=== PATIENT | female | born 1960 | race Caucasian/White ===

== ENCOUNTER 2017-10-26 13:08 | Observation (INO) ==
--- NOTE | 2017-10-26 13:17 | Emergency Department Note ---
Disposition Clinical Impression: Numbness and tingling of left arm and leg CVA (cerebral vascular accident) Qualifiers: CVA mechanism: unspecified Qualified Code(s): I63.9 - Cerebral infarction, unspecified Disposition: Admitted As Inpatient Condition: Fair Referrals: Carlos Carvajal MD [Primary Care Provider] - Time of Disposition: 14:07 Neuro HPI - General Stated Complaint: neuro symptoms Time Seen by Provider: 10/26/17 13:10 Source: patient Limitations: no limitations Nursing Notes Reviewed: Yes Vital Signs Reviewed: Yes - History of Present Illness HPI Narrative: 57-year-old with acute onset of numbness of the left side of her face her left arm and left leg at 9:30 this morning. Nevers had that before. Is not on a blood thinner does not take any medications no history of hypertension no history of atrial fibrillation. Onset of Symptoms Date: 10/26/17 Onset of Symptoms Time: 09:30 Symptom Onset Unknown: No Timing confirmed by: other (Patient) Location: left face, left arm, left leg History of same: No Severity: moderate Quality: numbness Symptoms Improving: No Improves with: none Worsens with: none Context: sudden onset On Anticoagulants: No Associated symptoms: Reports: denies other symptoms Treatments Prior to Arrival: none - Related Data Home Medications: Home Medications Medication Instructions Recorded Confirmed Zoloft 10/11/17 Previous Rx's Medication Instructions Recorded Nitrofurantoin (BID) [Macrobid] 100 mg PO BID 7 Days #14 capsule 10/11/17 Phenazopyridine [Pyridium] 200 mg PO TID 2 Days #12 tablet 10/11/17 Allergies/Adverse Reactions: Allergies Allergy/AdvReac Type Severity Reaction Status Date / Time No Known Allergies Allergy Verified 10/11/17 16:11 All systems ED: reviewed and negative except as stated. Constitutional: Denies: fever, chills, weakness, weight change Eyes: Denies: eye pain, eye discharge, vision change ENT ED: Denies: ear pain, throat pain, dental pain, hearing loss, epistaxis, congestion, dysphagia Cardiovascular: Denies: chest pain, palpitations, dyspnea on exertion, edema, syncope Respiratory: Denies: cough, dyspnea, wheezes, hemoptysis, stridor Gastrointestinal: Denies: abdominal pain, nausea, vomiting, diarrhea, constipation, hematemesis, melena, hematochezia Genitourinary: Denies: dysuria, frequency, hematuria, discharge Musculoskeletal: Denies: back pain, neck pain, arthralgia, myalgia Integumentary: Denies: rash, abrasion, lesions Neurological: Reports: numbness. Denies: headache, weakness, paresthesias, confusion, abnormal gait, vertigo Psychiatric: Denies: anxiety, depression, suicidal thoughts, homicidal thoughts , auditory hallucinations, visual hallucinations Endocrine: Denies: fatigue Hematological/Lymphatic: Denies: easy bleeding, easy bruising Allergic/Immunologic: Denies: facial swelling, urticaria Past Medical History - Past Medical History Medical history: Reports: non-contributory - Social History Smoking Status: Current every day smoker Smokeless Tobacco Status: No Alcohol use: Reports: none Physical Exam - General Limitations: no limitations General appearance: alert, in no apparent distress - Head Head exam: atraumatic, normocephalic, normal inspection - Eye Eye exam: Present: normal appearance, PERRL, EOMI - ENT ENT exam: normal exam, normal oropharynx, mucous membranes moist - Neck Neck exam: Present: normal inspection, full ROM, trachea midline - Chest Chest inspection: Present: normal inspection, symmetric chest wall rise - Respiratory Respiratory exam: Present: normal lung sounds bilaterally - Cardiovascular Cardiovascular exam: Present: regular rate, normal rhythm, normal heart sounds - Abdominal Exam Abdominal exam: Present: soft, Non-Tender. Absent: tenderness, distention, guarding, rebound, rigidity - Extremities Exam Extremities exam: Present: normal inspection, full ROM. Absent: tenderness, pedal edema - Expanded Lower Extremity Exam Neurovascular/Tendon exam: Absent: motor deficit, sensory deficit, tendon deficit - Back Exam Back exam: Present: normal inspection, full ROM. Absent: tenderness - Neurological Exam Neurological exam: Present: alert, oriented X3 - Psychiatric Psychiatric exam: Present: normal affect, normal mood - Skin Skin exam: Present: warm, dry, intact, normal color Course - Reevaluation(s) Reevaluation #1: 57-year-old who came in with acute onset of left-sided numbness of the face leg and arm. Time: 15:06 - Consultations Consultation #1: Discussed with , [facility] neurology stroke alert, patient is not a TPA candidate. Recommends admission here for evaluation of possible cardiac etiology of neck pain and etiology of the numbness. Recommends MRI, MRA of the head and neck. Time: 14:05 Consultation #2: Discussed with Dr. Macias, admit. Time: 15:06 Vital Signs Temperature 98.9 F 10/26/17 13:19 Pulse Rate 86 10/26/17 13:19 Respiratory Rate 18 10/26/17 13:19 Blood Pressure 152/92 10/26/17 13:19 O2 Sat by Pulse Oximetry 96 10/26/17 13:19 Temperature 98.9 F 10/26/17 13:19 Pulse Rate 74 10/26/17 14:30 Respiratory Rate 18 10/26/17 14:30 Blood Pressure 115/77 10/26/17 14:30 O2 Sat by Pulse Oximetry 93 10/26/17 13:48 Oxygen Delivery Oxygen Delivery Room Air Neuro Symptoms/Deficit - Lab Data Lab results reviewed: Yes I reviewed the patient's lab results. Result diagrams: 10/26/17 13:20 10/26/17 13:20 Lab Results 10/26/17 10/26/17 10/26/17 Range/Units 13:20 13:20 13:20 WBC 9.8 (4.3-11.1) K/mcL RBC 3.58 L (3.82-4.97) M/mcL Hgb 12.5 (11.5-15.4) g/dL Hct 34.7 L (35.3-44.9) % MCV 96.9 (83.0-100.0) fL MCH 34.9 H (28.0-33.3) pg MCHC 36.0 H (31.6-35.5) g/dL RDW 13.2 (11.5-14.5) % Plt Count 277 (140-400) K/mcL MPV 8.7 L (9.4-12.4) fL Immature Gran % 0.4 (0-4) % Seg Neutrophils % 51.3 % Lymphocytes % 38.1 % Monocytes % 7.0 % Eosinophils % 2.4 % Basophils % 0.8 % Neutrophils # 5.0 (1.6-8.9) K/mcL Lymphocytes # 3.7 (0.6-4.6) K/mcL Monocytes # 0.7 (0.0-1.3) K/mcL Eosinophils # 0.2 (0.0-0.6) K/mcL Basophils # 0.1 (0.0-0.2) K/mcL PT 10.6 (9.4-12.1) Seconds INR 1.0 APTT 26.4 (26.0-36.0) Seconds Sodium 136 (136-145) mEq/L Potassium 3.7 (3.5-5.1) mEq/L Chloride 104 (98-107) mEq/L Carbon Dioxide 23 (23-29) mEq/L BUN 14 (6-20) mg/dL Creatinine 0.79 (0.60-1.20) mg/dL Est GFR ( Amer) > 60 (> 60) Est GFR (Non-Af Amer) > 60 (> 60) BUN/Creatinine Ratio 18 (6-26) Glucose 97 (70-105) mg/dL Calculated Osmolality 282 (280-300) Calcium 9.2 (8.6-10.3) mg/dL Troponin I < 0.03 (< 0.04) ng/mL - Radiology Data Radiology results reviewed: Yes I reviewed the patient's radiology results. Chest X-Ray 10/26/17 13:14 IMPRESSION: No acute process. D/ / Kishore Echeverria MD / Kishore Echeverria MD Interpreting Provider: Kishore Echeverria MD Head CT 10/26/17 13:14 IMPRESSION: No acute intracranial abnormality. Findings were discussed with Juve Mace at 1:33 pm on 10/26/2017. D/ / Lenny Ortega MD / Lenny Ortega MD Interpreting Provider: Lenny Ortega MD - EKG Data EKG attestation: Yes I reviewed and interpreted this EKG. EKG shows normal: sinus rhythm Rate: normal Rhythm: NSR [place]/QRS: normal Interpretation: no acute changes NIH Stroke Scale - Level of Consciousness LOC: Alert - LOC Questions LOC Questions: Answers one correctly - LOC Commands LOC Commands: Performs both correctly - Best Gaze Best Gaze: Normal - Visual Visual: No visual loss - Facial Palsy Facial Palsy: Normal - Motor Arms Motor Arm-Left: No drift for 10 seconds Motor Arm-Right: No drift for 10 seconds - Motor Legs Motor Leg-Left: No drift for 5 seconds Motor Leg-Right: No drift for 5 seconds - Limb Ataxia Limb Ataxia: Normal, No Ataxia - Sensory Sensory: Mild to moderate loss, "not as sharp" - Best Language Best Language: No aphasia - Dysarthria Dysarthria: Normal - Extinction and Inattention Extinction and Inattention: Normal - NIHSS Total Score NIHSS Total Score: 2 TPA Checklist - LKW: 3-4.5 hrs Add. Warnings/Precautions Patient/family understanding: The patient/family members have been counseled and understood the risk, benefit , and alternatives of treatment.
[2017-10-26 13:28] LABS: Basophils # 0.1 K/mcL (0.0-0.2); Basophils % 0.8 %; Eosinophils # 0.2 K/mcL (0.0-0.6); Eosinophils % 2.4 %; Hematocrit 34.7 % (35.3-44.9); Hemoglobin 12.5 g/dL (11.5-15.4); Immature Granulocytes % 0.4 % (0-4); Lymphocytes # 3.7 K/mcL (0.6-4.6); Lymphocytes % 38.1 %; Mean Corpuscular Hemoglobin 34.9 pg (28.0-33.3); Mean Corpuscular Volume 96.9 fL (83.0-100.0); Mean Platelet Volume 8.7 fL (9.4-12.4); Monocytes # 0.7 K/mcL (0.0-1.3); Platelet Count 277 K/mcL (140-400); Red Blood Count 3.58 M/mcL (3.82-4.97); Red Cell Distribution Width 13.2 % (11.5-14.5); Segmented Neutrophils % 51.3 %
[2017-10-26 13:33] LABS: Prothrombin Time 10.6 Seconds (9.4-12.1)
[2017-10-26 13:37] LABS: Activated Partial Thrombo Time 26.4 Seconds (26.0-36.0)
[2017-10-26 13:44] LABS: Troponin I < 0.03 ng/mL (< 0.04)
[2017-10-26 13:53] LABS: BUN/Creatinine Ratio 18 (6-26); Blood Urea Nitrogen 14 mg/dL (6-20); Calcium 9.2 mg/dL (8.6-10.3); Carbon Dioxide 23 mEq/L (23-29); Chloride 104 mEq/L (98-107); Glucose 97 mg/dL (70-105); Osmolality,Calculated 282 (280-300); Potassium 3.7 mEq/L (3.5-5.1); Sodium 136 mEq/L (136-145); eGFR For African Americans > 60 (> 60); eGFR For Non-African Americans > 60 (> 60)
[2017-10-26] MEDS ORDERED: Naloxone 0.4 MG/ML INJ IVP PRN (15:18)
[2017-10-26] MEDS ORDERED: Acetaminophen 325 MG TABLET PO PRN (15:18)
--- NOTE | 2017-10-26 15:41 | Internal Med History&Physical ---
Date of Encounter: 10/26/17 Time of Encounter: 14:30 Internal Medicine - H&P: HPI Chief complaint: CVA sx (LLE/LUE weakness) Admitted From: Emergency Dept Plans for Post Hospital Care: Home History of present illness: Ms. Solis is a 57 year old female w/no medical hx who presents from the ED w/ CC of LUE and LLE weakness, numbness, and tingling that began this morning. Associated sx: right and left neck discomfort, left cheek numbness, pain in forehead, and tachycardia. Pt. reports sx as numbness and tingling w/pins and needles sensations. Denies CVA/TIA hx. 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 Denies recent illness, fever, chills, nausea, vomiting, headache, abdominal pain, changes in vision, CP, SOB, diarrhea, constipation, dizziness, lightheadedness, pre-syncope, or syncope. Past Med Surg Social Fam HX - Past Medical History Source: patient, old records reviewed, obtained from family Medical history: no medical history Psychiatric history: depression - Social History Smoking Status: Current every day smoker Smokeless Tobacco Status: No Alcohol use: none Current living situation: Home, With Family Activity Level: Independent ambulation Recent Out of Country Travel Within the Last 8 Weeks: No Exposure or Possible Exposure to Illness During Travel: No - Family History Father Race: Family Member Ethnicity: Non- Living Status: Age at : 62 Cause of : PNA Hx Family Respiratory Disorders: Yes (TB) Hx Family GI Disorders: Yes (Ulcers) Mother Race: Family Member Ethnicity: Non- Living Status: Age at : 76 Cause of : CAD Hx Family Cardiac Disorders: Yes (CAD, HTN) Brother History Unknown: Yes Race: Family Member Ethnicity: Non- Living Status: Still Living Sister Race: Family Member Ethnicity: Non- Living Status: Still Living Hx Family Genitourinary Disorders: Yes (Kidney stones) Hx Family Psychosocial Disorders: Yes (Depression) Internal Medicine - H&P: Meds Loratadine [Allergy Relief] 10 mg PO DAILY 10/26/17 [History] Multivit-Min/FA/Lycopen/Lutein [A Thru Z Select Multivit Tab] 1 tab PO DAILY [History] Sertraline [Zoloft] 100 mg PO DAILY 10/26/17 [History] 3 Allergy/AdvReac Type Severity Reaction Status Date / Time No Known Allergies Allergy Verified 10/11/17 16:11 All Systems PM: A 10-system review of systems was performed and is negative for pertinent findings except as documented above in the HPI. - Constitutional Constitutional: as per HPI, weakness (LUE/LLE ), no chills, no fever(s), no night sweats - EENT Eyes: no change in vision, no discharge, no pain, no photophobia Ears: no ear discharge, no ear pain, no tinnitus Nose, mouth and throat: no dysphagia, no nasal discharge, no neck pain, no sore throat - Breasts Breasts: as per HPI - Cardiovascular Cardiovascular ROS IM: no chest pain, no diaphoresis, no dyspnea, no lightheadedness, no palpitations, no syncope - Respiratory Respiratory: no cough, no dyspnea, no wheezing, no excessive phlegm production - Gastrointestinal Gastrointestinal: no abdominal pain, no diarrhea, no hematemesis, no hematochezia, no melena, no nausea, no vomiting - Genitourinary Genitourinary: no change in urinary stream, no dysuria, no flank pain, no hematuria Menstruation: as per HPI - Musculoskeletal Musculoskeletal ROS IM: no numbness, no tingling - Integumentary Integumentary IM: no rash, no unusual bruising - Neurological Neurological ROS: as per HPI, numbness (LUE/LLE/LT cheek), tingling (LLE/LLE/LT cheek), weakness, no confusion, no convulsions, no focal weakness, no tremor(s) - Psychiatric Psychiatric: as per HPI, depression - Endocrine Endocrine IM: as per HPI - Hematologic/Lymphatic Hematologic/Lymphatic: no easy bruising - Allergic/Immunologic Allergic/Immunologic: as per HPI - Constitutional Vitals: Temp Pulse Resp BP Pulse Ox 98.9 F 71 18 143/95 98 10/26/17 13:19 10/26/17 15:05 10/26/17 15:05 10/26/17 15:05 10/26/17 15:05 General appearance: Present: cooperative, A&O X 3, pleasant, no acute distress, answers questions appropriately - Head Head exam: Present: atraumatic, normocephalic - Eye Eye exam: Present: PERRL, conjuntiva pink, sclera anicteric Pupils: Present: PERRL - ENT ENT exam: Present: normal exam - Neck Neck exam general surgery: Present: normal inspection, supple, trachea midline. Absent: lymphadenopathy - Respiratory Respiratory exam: Present: CTAB. Absent: accessory muscle use, rales, rhonchi, wheezes - Cardiovascular Cardiovascular exam: Present: RRR, +S1, +S2. Absent: diastolic murmur, gallop, rubs, systolic murmur - GI/Abdominal GI/Abdominal exam: Present: normal bowel sounds, soft, no peritoneal signs. Absent: distended, tenderness - Rectal Rectal exam: Present: deferred - Additional comments: exam deferred. - Extremities Exam Extremities exam: Present: warm, radial pulses palpable and symmetrical. Absent : calf tenderness, cyanotic, pedal edema Additional comments: Mild (4/5) weakness in LLE and LUE on exam. No pronator drift, facial droop, slurred speech. Denies difficulty swallowing. - Back Exam Back exam: Present: normal inspection - Neurological Exam Neurological exam: Present: alert, CN II-XII intact, oriented X3, no focal deficits. Absent: pronater drift, facial droop, speech deficit - Psychiatric Psychiatric exam: Present: normal affect, normal mood - Skin Skin exam: Present: dry, intact Internal Med - H&P Results - Labs CBC & Chem 7: 10/26/17 13:20 10/26/17 13:20 - Diagnostic Studies Chest x-ray Additional comments: Impressions Chest X-Ray 10/26/17 13:14 IMPRESSION: No acute process. D/ / Kishore Echeverria MD / Kishore Echeverria MD Interpreting Provider: Kishore Echeverria MD CT scan - head Additional comments: Impressions Head CT 10/26/17 13:14 IMPRESSION: No acute intracranial abnormality. Findings were discussed with Juve Mace at 1:33 pm on 10/26/2017. D/ / Lenny Ortega MD / Lenny Ortega MD Interpreting Provider: Lenny Ortega MD - Assessment and plan (1) Numbness and tingling of left arm and leg Current Visit: Yes Status: Acute Assessment and plan: Acute numbness and tingling of the LUE and LLE that began today. Reports numbness, tingling, and pins/needles sensation in LUE, LLE, and Lt. cheek. Stroke alert called and discussed w/[facility] w/recommendation that pt. was not candidate for TPA. On exam, mild weakness (4/5) present in LLE/LUE but no pronator drift, facial droop, or slurred speech present. Denies hx of CVA or TIA. No familial hx. No recent cardiac work-up. Denies CP, SOB but reports tachycardia, pains in forehead, and bilateral neck discomfort. NIHSS scale ordered w/neuro checks Q2HR. Continuous cardiac telemetry. NPO until dysphagia screen passed. Bilateral carotid Dopplers ordered. Echocardiogram ordered. CT of the head unremarkable. MRI of the head/brain ordered to rule out ischemia /infarct. Pt. reports UTI two weeks ago, so UA w/reflex micro and culture ordered. Neuro consult ordered and discussed w// Radha and I appreciate the consult and recommendations. Pt. discussed w/Dr. Macias who agrees w/plan of care. Pt. is moderate risk for further morbidity based on new onset of CVA-type sx affecting her left side, no recent cardiac work-up or hx, and risk factor of current tobacco abuse. Observation. (2) Tobacco abuse Current Visit: Yes Status: Chronic Assessment and plan: Hx of chronic tobacco abuse. Reports smoking 1 PPD. Will order nicotine patch if needed. (3) Depression Current Visit: Yes Status: Chronic Assessment and plan: Hx of chronic depression. Continue pts. Zoloft. Qualifiers: Depression Type: unspecified Qualified Code(s): F32.9 - Major depressive disorder, single episode, unspecified (4) DVT prophylaxis Current Visit: Yes Status: Acute Assessment and plan: Heparin 5,000 units SQ Q8HR for DVT prophylaxis. Monitor pt. for signs of bleeding. - Time Spent With Patient Total time spent is greater than 50% in coordination of care (as documented) at patient's floor/unit and/or counseling patient: Greater than 35 minutes
[2017-10-26] MEDS: *HR* Heparin 5,000 UNIT/ML VIAL SQ SCH (22:10)
[2017-10-27 02:05] LABS: Alanine Aminotransferase 16 Units/L (7-52); Albumin/Globulin Ratio 1.5 (1.1-2.2); Alkaline Phosphatase 101 Units/L (34-104); Aspartate Amino Transferase 21 Units/L (13-39); BUN/Creatinine Ratio 21 (6-26); Bilirubin,Total 0.3 mg/dL (0.3-1.0); Blood Urea Nitrogen 14 mg/dL (6-20); Calcium 9.1 mg/dL (8.6-10.3); Carbon Dioxide 28 mEq/L (23-29); Chloride 106 mEq/L (98-107); Chol/HDL Ratio 3.8 (0-4.9); Cholesterol 180 mg/dL (< 200); Globulin 2.7 g/dL (2.4-3.5); Glucose 98 mg/dL (70-105); HDL Cholesterol 47 mg/dL (40-59); LDL Cholesterol,Calculated 100 mg/dL (0-99); Magnesium 2.1 mg/dL (1.6-2.6); Osmolality,Calculated 288 (280-300); Potassium 3.8 mEq/L (3.5-5.1); Sodium 139 mEq/L (136-145); Total Protein 6.7 g/dL (6.4-8.9); Triglycerides 165 mg/dL (< 150); eGFR For African Americans > 60 (> 60); eGFR For Non-African Americans > 60 (> 60)
[2017-10-27 02:20] LABS: Activated Partial Thrombo Time 26.3 Seconds (26.0-36.0); Prothrombin Time 10.9 Seconds (9.4-12.1)
[2017-10-27 02:31] LABS: Basophils # 0.1 K/mcL (0.0-0.2); Basophils % 0.8 %; Eosinophils # 0.3 K/mcL (0.0-0.6); Eosinophils % 3.8 %; Hematocrit 34.4 % (35.3-44.9); Hemoglobin 11.8 g/dL (11.5-15.4); Immature Granulocytes % 0.4 % (0-4); Lymphocytes # 3.2 K/mcL (0.6-4.6); Lymphocytes % 42.9 %; Mean Corpuscular HGB Conc 34.3 g/dL (31.6-35.5); Mean Corpuscular Hemoglobin 33.3 pg (28.0-33.3); Mean Corpuscular Volume 97.2 fL (83.0-100.0); Monocytes # 0.6 K/mcL (0.0-1.3); Neutrophils # 3.3 K/mcL (1.6-8.9); Platelet Count 262 K/mcL (140-400); Red Blood Count 3.54 M/mcL (3.82-4.97); Red Cell Distribution Width 13.2 % (11.5-14.5); Segmented Neutrophils % 44.1 %
[2017-10-27] MEDS: *HR* Heparin 5,000 UNIT/ML VIAL SQ SCH ×2 (05:39→15:39)
[2017-10-27 06:46] LABS: Estimated Average Glucose 108 mg/dl; Hemoglobin A1C 5.4 %
[2017-10-27] MEDS ORDERED: Loratadine 10 MG TABLET PO SCH (09:00)
[2017-10-27] MEDS ORDERED: Multivit/Ca/Min/Fe/FA 1 TAB TABLET PO SCH (09:00)
--- NOTE | 2017-10-27 09:02 | Neurology - Consult Note ---
Date of Encounter: 10/27/17 Time of Encounter: 08:58 Assessment and Plan (1) Numbness and tingling of left arm and leg Current Visit: Yes Status: Acute Patient has developed acute onset of left hemiparesthesia involving face, arm and leg on the left side, off and on but improving, without no other neurological deficit, negative MRI of brain for acute infarct but represent focal ischemia causing sensory deficits. Pending echocardiography. Would recommend aspirin 81mg daily for secondary CVA/TIA prevention. if echocardiography returns unremarkable patient can be discharged home from neurology perspective. Continue statin therapy. History of Present Illness Chief complaint: left sided paresthesia HPI: Ms. Solis is a 57 year old female with PMH significant for depression who developed acute onset of left sided paresthesia. Symptoms occurred at work yesterday. She describes a feeling of pins and needles involving her right arm leg and face, without speech difficulty or weakness. The symptoms come and go but still persisted when she arrived ER. Thought not to be a candidate for tPA due to no significant deficits but subjective numbness and tingling sensation. At the time of this interview, she still has some residual paresthesia involving the left side. sensory examination is intact. CT of head showed no intracranial abnormality. MRI of brain completed and showed no acute intracranial abnormality. carotid artery duplex study is unremarkable. Past Med Surg Social Fam HX - Past Medical History Medical history: no medical history Psychiatric history: depression - Social History Smoking Status: Current every day smoker Smokeless Tobacco Status: No Alcohol use: none Drug use: none - Family History Father Race: Family Member Ethnicity: Non- Living Status: Age at : 62 Cause of : PNA Hx Family Cardiac Disorders: No Hx Family Respiratory Disorders: Yes (TB) Hx Family GI Disorders: Yes (ulcer) Hx Family Genitourinary Disorders: No Hx Family Endocrine Disorder: No Hx Family Musculoskeletal Disorders: No Hx Family Neuromuscular Disorders: No Hx Family Neurologic Disorders: No Hx Family HEENT Disorders: No Hx Family Autoimmune Disorders: No Hx Family Reproductive Disorders: No Hx Family Psychosocial Disorders: No Mother Race: Family Member Ethnicity: Non- Living Status: Age at : 76 Cause of : CAD Hx Family Cardiac Disorders: Yes (stent) Hx Family Respiratory Disorders: Yes (COPD) Hx Family Cancer: No Hx Family GI Disorders: No Hx Family Genitourinary Disorders: No Hx Family Endocrine Disorder: No Hx Family Musculoskeletal Disorders: No Hx Family Neuromuscular Disorders: No Hx Family Neurologic Disorders: No Hx Family HEENT Disorders: No Hx Family Autoimmune Disorders: No Hx Family Reproductive Disorders: No Hx Family Psychosocial Disorders: No Brother History Unknown: Yes Race: Family Member Ethnicity: Non- Living Status: Still Living Sister Race: Family Member Ethnicity: Non- Living Status: Still Living Hx Family Genitourinary Disorders: Yes (Kidney stones) Hx Family Psychosocial Disorders: Yes (Depression) Medications and Allergies Loratadine [Allergy Relief] 10 mg PO DAILY 10/26/17 [History] Multivit-Min/FA/Lycopen/Lutein [A Thru Z Select Multivit Tab] 1 tab PO DAILY [History] Sertraline [Zoloft] 100 mg PO DAILY 10/26/17 [History] 3 Allergy/AdvReac Type Severity Reaction Status Date / Time No Known Allergies Allergy Verified 10/11/17 16:11 All Systems: The remainder of the systems were reviewed and are negative Physical Examination - Vital Signs Vital Signs: Initial Vital Signs Temp Pulse Resp BP Pulse Ox 98.9 F 86 18 152/92 96 10/26/17 13:19 10/26/17 13:19 10/26/17 13:19 10/26/17 13:19 10/26/17 13:19 - Constitutional General appearance: comfortable - Neurologic Detailed motor examination: full strength in all major muscle groups Motor examination - right side: 5/5: deltoids, biceps, triceps, wrist flexion, wrist extension, manufacturing director, hip flexors, tibialis Anterior, quadriceps, toe extension (EHL), plantarflexion Motor examination - left side: 5/5: deltoids, biceps, triceps, wrist flexion, wrist extension, hip flexors, manufacturing director, quadriceps, tibialis Anterior, toe extension (EHL), plantarflexion Detailed sensory examination: intact Reflex and gait examination: intact Reflexes: Biceps: 2+, Triceps: 2+, Brachioradialis: 2+, Patella: 2+, Achilles: 2 + Mental Status Examination: awake, alert, oriented to person, oriented to place, oriented to time, follows commands appropriately, answers questions appropriately, no agnosia, no aphasia, no aproxia Cranial nerve examination: PERRL, EOMI, visual villanueva intact, corneal reflexes brisk symmetrically, sensory to face intact, mastication intact, no facial asymmetry is present, no dysarthria, hearing is intact symmetrically, soft palate elevates bilaterally upon phonation, gag reflex intact, flexes SCM and trapezius muscles symmetrically with full power, tongue protrudes midline, no atrophy or facial fasiculations present Cerebellar examination: no dysmetria, performs finger to nose and heel to sargent symmetrically without ataxia, no gait ataxia, no truncal ataxia, no difficulty with rapid alternating movements Results - Laboratory Findings CBC and BMP: 10/27/17 01:11 10/27/17 01:11 Abnormal lab findings: Abnormal lab results RBC 3.54 M/mcL (3.82-4.97) L 10/27/17 01:11 Hct 34.4 % (35.3-44.9) L 10/27/17 01:11 MPV 9.0 fL (9.4-12.4) L 10/27/17 01:11 Triglycerides 165 mg/dL (< 150) H 10/27/17 01:11 LDL Cholesterol, Calc 100 mg/dL (0-99) H 10/27/17 01:11 VLDL Cholesterol, Calc 33 mg/dL (< 31) H 10/27/17 01:11 - Diagnostic Findings Additional findings: CT OF THE HEAD WITHOUT CONTRAST - STROKE ALERT 10/26/2017 1:28 pm TECHNIQUE: CT of the head was performed without the administration of intravenous contrast. Dose modulation, iterative reconstruction, and/or weight based adjustment of the mA/kV was utilized to reduce the radiation dose to as low as reasonably achievable. COMPARISON: None. HISTORY: ORDERING SYSTEM PROVIDED HISTORY: stroke alert Acute left-sided weakness, numbness starting this morning. Initial encounter. FINDINGS: BRAIN/VENTRICLES: There is no acute intracranial hemorrhage, mass effect or midline shift. No abnormal extra-axial fluid collection. The ortega-white differentiation is maintained without evidence of an acute infarct. There is no evidence of hydrocephalus. ORBITS: The visualized portion of the orbits demonstrate no acute abnormality. SINUSES: The visualized paranasal sinuses and mastoid air cells demonstrate no acute abnormality. SOFT TISSUES/SKULL: No acute abnormality of the visualized skull or soft tissues. CT/CT stroke alert head wo con IMPRESSION: No acute intracranial abnormality. Findings were discussed with Juve Mace at 1:33 pm on 10/26/2017. Impressions: The bilateral carotid arteries have minimal plaque throughout. Findings Carotid Duplex: Right: There is nonstenotic plaque in the right bifurcation. There is smooth heterogeneous plaque. Left: There is nonstenotic plaque in the left bifurcation. There is smooth heterogeneous plaque. Prior Study: No prior study available for comparison. Carotid Results MRI OF THE BRAIN WITHOUT CONTRAST 10/26/2017 4:23 pm TECHNIQUE: Multiplanar multisequence MRI of the brain was performed without the administration of intravenous contrast. COMPARISON: CT head earlier today. HISTORY: ORDERING SYSTEM PROVIDED HISTORY: R/O ischemia/infarct from CVA sx Initial encounter. Acute illness. 4 hours of headaches with memory loss and left-sided numbness in face, arm, and leg. FINDINGS: INTRACRANIAL STRUCTURES/VENTRICLES: Parenchymal volume is commensurate with age. There is mild patchy peripheral cerebral white matter T2/FLAIR hyperintensity, which is nonspecific but generally ascribed to sequela of chronic microvascular ischemia. There is no evidence of acute infarct or intracranial mass. No mass effect or midline shift. No evidence of an acute intracranial hemorrhage. The ventricles and sulci are normal in size and configuration. The sellar/suprasellar regions appear unremarkable. The normal signal voids within the major intracranial vessels appear maintained. ORBITS: The visualized portion of the orbits demonstrate no acute abnormality. SINUSES: The visualized paranasal sinuses and mastoid air cells are well aerated. BONES/SOFT TISSUES: The bone marrow signal intensity appears normal. The soft tissues demonstrate no acute abnormality. MR/MR head/brain wo con IMPRESSION: 1. No acute intracranial abnormality. 2. Mild chronic white matter microvascular ischemic changes. Consult Discharge Plan - Plan Referrals: Carlos Carvajal MD [Primary Care Provider] -
[2017-10-27 14:42] LABS: Bilirubin,Urine Negative (Negative); Blood,Urine Trace (Negative); Clarity,Urine Clear (Clear); Color,Urine Yellow (Yellow); Glucose,Urine (UA) Normal (Normal); Ketones,Urine Negative (Negative); Leukocyte Esterase,Urine Small (Negative); Nitrite,Urine Negative (Negative); PH,Urine 6.5 pH Units (5.0-8.0); Protein,Urine Negative (Neg-Trace); Specific Gravity,Urine 1.015 (1.010-1.025); Urobilinogen,Urine Normal (Normal)
[2017-10-27 14:47] LABS: Bacteria,Urine None Seen per hpf (None-Few); Hyaline Casts,Urine None Seen per lpf (None-Few); RBC,Urine 0-3 per hpf (0-3); Squamous Epithelial Cell,Urine Few per lpf (None-Few)
[2017-10-27 15:28] VITALS: BP 109/71
--- NOTE | 2017-10-27 15:37 | Discharge Summary ---
- NOTES TO OUTPATIENT PROVIDER Notes to Outpatient Provider: Continue with ASA statin per neurology recommendations. echo: LVEF 60%. Normal left ventricular diastolic function. Normal right ventricular structure and function. No significant valvular dysfunction. No pulmonary hypertension. PFO present with saline contrast injection. Orders not resulted at time of discharge: Pending orders 10/27/17 14:10 Culture,Urine [RM] Stat Date of Encounter: 10/27/17 Time of Encounter: 15:33 - Discharge Diagnosis (1) Numbness and tingling of left arm and leg Priority: Primary Status: Acute (2) Depression Priority: Secondary Status: Chronic Qualifiers: Depression Type: unspecified Qualified Code(s): F32.9 - Major depressive disorder, single episode, unspecified (3) Tobacco abuse Priority: Secondary Status: Chronic Hospital course: Ms. Solis is a 57 year old female H tobacco use depression. Presented to [facility] ED after developing acute onset of left sided parasthesia. NO speech deficits or weakness. Symptoms came and went and resoleved after several hours. In the the ED thought not a candidate for TPA due to no signifcant deficits. CT of head showed no intracranial abnormality MRI of brain completed and showed no acute intracranial abnormality. carotid artery duplex study is unremarkable. Echo did show PFO. Patient was seen by neurology who recommends cont ASA statin and risk reduction. I did discuss smoking cessation and patient requested nicotine patch. Advised about low fat low chol diet. Presently has no parasthesia sx and she is neuroligically intact. I advised patient to follow up with PCP and to take medication as prescribed She verbalizes understanding She is hemodynamically stable Discharge discussed with: patient - Time Spent with Patient Total time spent providing and/or coordinating discharge services: - Discharge Medications Prescriptions: Aspirin 81 mg PO DAILY #30 tab.chew Atorvastatin [Lipitor] 10 mg PO HS #30 tablet Nicotine Patch [Nicoderm] 14 mg TD DAILY #14 patch.td24 Home Medications: Loratadine [Allergy Relief] 10 mg PO DAILY 10/26/17 [History] Multivit-Min/FA/Lycopen/Lutein [A Thru Z Select Multivit Tab] 1 tab PO DAILY [History] Sertraline [Zoloft] 100 mg PO DAILY 10/26/17 [History] Aspirin 81 mg PO DAILY #30 tab.chew 10/27/17 [Rx] Atorvastatin [Lipitor] 10 mg PO HS #30 tablet 10/27/17 [Rx] Nicotine Patch [Nicoderm] 14 mg TD DAILY #14 patch.td24 10/27/17 [Rx] Allergies/Adverse Reactions: 3 Allergy/AdvReac Type Severity Reaction Status Date / Time No Known Allergies Allergy Verified 10/11/17 16:11 Date of admission: 10/26/17 15:20 Primary care physician: Carlos Carvajal Consults: 10/26/17 16:08 Consult to Neurology [CONS] Routine Consulting Provider: Neurology [facility] Reason for Consult: Patient has new onset of LUE and LLE weakness this morning w/numbness, tingling, and pins/needles sensations. Also in left cheek. No CVA/ TIA hx or familial hx. Risk factor of current tobacco abuse. Call Completed: Yes Discharging clinician: Berta Morocho Anticipated date of discharge: 10/27/17 - Constitutional Vitals: Temp Pulse Resp BP Pulse Ox 98.3 F 71 14 109/71 99 10/27/17 15:27 10/27/17 15:27 10/27/17 15:27 10/27/17 15:27 10/27/17 15:27 General appearance: Present: cooperative, A&O X 3, pleasant, no acute distress, answers questions appropriately - Head Head exam: Present: atraumatic, normocephalic - Eye Eye exam: Present: PERRL, conjuntiva pink, sclera anicteric Pupils: Present: PERRL - Neck Neck exam general surgery: Present: supple, trachea midline. Absent: lymphadenopathy - Respiratory Respiratory exam: Present: CTAB. Absent: accessory muscle use, rales, rhonchi, wheezes - Cardiovascular Cardiovascular exam: Present: RRR, +S1, +S2. Absent: diastolic murmur, gallop, rubs, systolic murmur - GI/Abdominal GI/Abdominal exam: Present: normal bowel sounds, soft, no peritoneal signs. Absent: distended, tenderness - Extremities Exam Extremities exam: Present: warm, radial pulses palpable and symmetrical. Absent : calf tenderness, cyanotic, pedal edema - Neurological Exam Neurological exam: Present: CN II-XII intact, oriented X3, no focal deficits. Absent: pronater drift, facial droop, speech deficit - Skin Skin exam: Present: dry, intact - Patient Status Disposition: Home, Self-Care Condition: Fair Functional capacity at discharge: independent ambulation Overall status at discharge: patient is back to baseline - Discharge Instructions Instructions: How to Stop Smoking (DC), Cigarette Smoking and Your Health (GEN) , Ischemic Stroke (DC), Chronic Hypertension (DC), Hyperlipidemia (DC) Follow Up With: Carlos Carvajal MD [Primary Care Provider] - 11/07/17 9:00 am Additional Instructions: Follow-up appointments: If there is not an appointment listed below, please call your physician and schedule a follow-up appointment. If you have congestive heart failure and your symptoms return, make an appointment with your physician. Medication List: Carry an up to date list of medications you are taking at all time. We have given you an updated medication list including any new medications that you have been prescribed. Please provide that list to your primary provider Symptoms: If your condition changes or you experience any of the following symptoms, notify your physician immediately: Unusual or worsening pain, fever, persistent nausea and vomiting, bleeding, increase in swelling (especially in your legs), sudden weight gain, extreme dizziness, chest pain, increased drainage or redness from a wound or incision. Go to the emergency department if you experience a problem with breathing. Weights: If you have a history of swelling or shortness of breath, weigh yourself daily and notify your physician if you have a weight gain of two or more pounds in one day or 5 or more pounds in a week. If you experience any of the warning signs for stroke: Sudden numbness or weakness of the face, arm or leg; especially on one side of the body, sudden confusion, trouble speaking or understanding, sudden trouble seeing in one or both eyes, sudden trouble walking, dizziness, loss of balance or coordination, sudden sever headache with no cause; Call 911 or go to the emergency room. Stroke is a medical emergency. Some risk factors for stroke: Age, cigarette smoking, diabetes, excessive alcohol consumption, family history , high blood pressure, overweight, physical inactivity, prior stroke, heart attack, diagnosis of carotid artery stenosis or other artery disease. If you smoke, STOP: Smoking or tobacco use significantly increases your risk of heart and lung disease. Your chance of disease greatly increases if you continue to smoke. For more information, call the [place] tobacco quit line for smoking cessation - QUIT-NOW ( ) - Diet and Activity Activity: resume usual activities as tolerated Diet: low fat, low cholesterol
--- NOTE | 2017-10-27 16:08 | Electrocardiograph Report ---
[address] [address] Test Date: 2017-10-26 Pat Name: Silvia Solis Department: 102 Room: 3B64 Gender: Female [employer] Supervisor: Laura : 1960 Requested By: Order Number: [id number] Reading MD: Mildred Russell Measurements Intervals [place] Rate: 92 P: 75 [place]: 175 QRS: 49 QRSD: 98 T: 58 QT: 329 QTc: 379 Interpretive Statements SINUS RHYTHM Electronically Signed On 10-27-2017 16:06:50 EDT by Mildred Russell
== END 2017-10-27 16:28 | disposition home or self-care (01) ==
LOC: EMEROO 13:08 → 3BNU 13:08
PROVIDERS: ADMIT Internal Medicine Nephrology; ATTEND Internal Medicine Nephrology